=== PATIENT | female | born 1980 | race Caucasian/White ===

== ENCOUNTER 2021-06-14 19:55 | Emergency (ER) | payer SELFPAY ==
[2021-06-14] MEDS ORDERED: HYDROcodone/Acetaminophen 5/325 mg Tablet ONE (20:22)
[2021-06-14] MEDS ORDERED: Boostrix 0.5 ML (Tdap) VIAL ONE ×2 (20:22)
[2021-06-14] MEDS ORDERED: Lidocaine 2% w/Epinephrine 1:200K 20 ML VIAL ONE (20:25)
== END 2021-06-14 20:50 | disposition home or self-care (01) ==
LOC: BURERS 19:55
DX: S61.412A Laceration without foreign body of left hand, initial encounter (principal); W26.0XXA Contact with knife, initial encounter
CPT/HCPCS: 12002; 90471; 90715